=== PATIENT | female | born 1980 | race African-American/Black ===

== ENCOUNTER 2016-08-18 20:37 | Emergency (ER) | payer SELFPAY ==
[~2016-08-18] VITALS: Ht 160 cm; Wt 55.0 kg
[~2016-08-18 20:37] MED LIST: ALBU6.7H INH; PRED20 PO
[2016-08-18 20:40] VITALS: BP 117/58; PULSE 99; RESP 14; TEMP 98.2; O2SAT 98
[2016-08-18 21:14] LABS: BLOOD, URINE SMALL (NEG); COMMENT (UR) CULTURE INDICATED; CULTURE IF INDICATED CULTURE INDICATED; GLUCOSE,URINE NEG (NEG); KETONE, URINE NEG (NEG); MUCUS URINE FEW /lpf (OCC); NITRITE,URINE NEG (NEG); SQUAMOUS EPITHELIAL CELL URINE 14 /hpf (0-5); URINE COLOR YELLOW (YELLW/STRAW)
[2016-08-18] MEDS ORDERED: ALBU6.7H INH (21:23)
[2016-08-18] MEDS ORDERED: BACT800T5 PO (21:33)
[2016-08-18] MEDS ORDERED: PYRI200T4 PO (21:33)
--- NOTE | 2016-08-18 21:35 | PD ---
HPI Chief Complaint: Complaint Time Seen by Provider: 21:33 Travel History International Travel<30 days: No Contact w/Intl Traveler<30days: No Traveled to known affect area: No History of Present Illness HPI 36-year-old black female presents to emergency department with a one-week history of increased urinary frequency, dysuria and bladder pressure. She states that this is similar to what she's had bladder infections in the past. She denies any fever or chills. No back pain. No abdominal pain. No vaginal complaints. PFSH Past Medical History Narrative Medical UTIs Diminished Hearing: No Genitourinary: Yes (UTI LAST NOVEMBER. DID NOT FINISH MACROBID DUE TO NAUSEA) Tetanus Vaccination: < 5 Years ?: Not : 0 Para: 0 Miscarriage: 0 : 0 Past Surgical History Surgical History: No Previous Surgery Social History Alcohol Use: No Tobacco Use: No Substance Use: No Allergies-Medications (Allergen,Severity, Reaction): Coded Allergies: Seafood (Verified Allergy, Severe, Anaphylaxis, 08/18/16) Macrobid (Verified Adverse Reaction, Severe, NAUSEA/VOMITING, ABD PAIN, ) Reported Meds & Prescriptions Reported Meds & Active Scripts Active Reported Proventil Hfa 6.7 GM Inh (Albuterol Sulfate) 90 Mcg/Act Aer 2 Puff INH Q4-6H PRN Review of Systems Except as stated in HPI: all other systems reviewed are Neg Physical Exam Narrative GENERAL: Well-developed, well-nourished in no acute distress. Nontoxic appearing. HEAD: Normocephalic, atraumatic. EYES: Pupils equal round and reactive. Extraocular motions intact. No scleral icterus. No injection or drainage. ENT: TMs clear without erythema. The external auditory canals clear. Nose: clear . Posterior pharynx is pink and moist. No tonsillar edema or exudate. Uvula midline. Airway patent. NECK: Trachea midline.Supple, nontender, moves head freely. No central bony tenderness or spasm. CARDIOVASCULAR: Regular rate and rhythm without murmurs, gallops, or rubs. RESPIRATORY: Clear to auscultation. Breath sounds equal bilaterally. No wheezes , rales, or rhonchi. GASTROINTESTINAL: Abdomen soft, non-tender, nondistended. No hepato-splenomegaly , or palpable masses. No guarding. EXTREMITIES: No clubbing, cyanosis, or edema. No joint tenderness, effusion, or edema noted. BACK: Nontender without deformity or crepitance. No flank tenderness. Data Data Last Documented VS Vital Signs Date Time Temp Pulse Resp B/P Pulse Ox O2 Delivery O2 Flow Rate FiO2 08/18/16 20:40 98.2 99 14 117/58 98 Room Air Orders Urinalysis - C+S If Indicated (08/18/16 20:45) Urine Culture (08/18/16 20:45) Sulfamet-Trimeth Ds 800-160 Mg (Bactrim (08/18/16 21:45) Phenazopyridine (Pyridium) (08/18/16 21:45) Labs Laboratory Tests Test 08/18/16 20:45 Urine Color YELLOW Urine Turbidity CLOUDY Urine pH 6.0 Urine Specific [place] 1.022 Urine Protein 100 mg/dL Urine Glucose (UA) NEG mg/dL Urine Ketones NEG mg/dL Urine Occult Blood SMALL Urine Nitrite NEG Urine Bilirubin NEG Urine Urobilinogen LESS THAN 2.0 MG/DL Urine Leukocyte Esterase LARGE Urine RBC 30 /hpf Urine WBC /hpf Urine Squamous Epithelial 14 /hpf Cells Urine Mucus FEW /lpf Microscopic Urinalysis Comment CULTURE INDICATED MDM Medical Decision Making Medical Screen Exam Complete: Yes Emergency Medical Condition: Yes Medical Record Reviewed: Yes Interpretation(s) Laboratory Tests Test 08/18/16 20:45 Urine Color YELLOW Urine Turbidity CLOUDY Urine pH 6.0 Urine Specific [place] 1.022 Urine Protein 100 mg/dL Urine Glucose (UA) NEG mg/dL Urine Ketones NEG mg/dL Urine Occult Blood SMALL Urine Nitrite NEG Urine Bilirubin NEG Urine Urobilinogen LESS THAN 2.0 MG/DL Urine Leukocyte Esterase LARGE Urine RBC 30 /hpf Urine WBC /hpf Urine Squamous Epithelial 14 /hpf Cells Urine Mucus FEW /lpf Microscopic Urinalysis Comment CULTURE INDICATED Differential Diagnosis Differential diagnoses: UTI, pyelonephritis, vaginitis Narrative Course This is UTI. Patient's given Bactrim DS and Pyridium 200 mg by mouth. Diagnosis Primary Impression: UTI (urinary tract infection) Qualified Code: N30.01 - Acute cystitis with hematuria Patient Instructions: General Instructions Additional Instructions: Rest. Increase fluids. Septra DS and Pyridium. Follow-up with a primary care doctor in one week. Return to the ER for any problems. Med/Other Pt SpecificInfo: Prescription(s) given Scripts Phenazopyridine (Pyridium)200 Mg Jam407 Mg PO Q8H PRN (DYSURIA) #9 TAB Prov:Iván Toro MD 08/18/16 Sulfamethoxazole-Trimethoprim (Bactrim DS)800-160 Mg Tab1 Tab PO BID #14 TAB Prov:Iván Toro MD 08/18/16 Disposition: 01 DISCHARGE HOME Condition: Stable Thomas Vergara Aug 18, 2016 21:35
[2016-08-18] MEDS ORDERED: SULFAMETHOXAZOLE-TRIMETHOPRIM DS 800-160 MG TAB PO ONE (21:45)
[2016-08-18] MEDS ORDERED: PHENAZOPYRIDINE HCL 200 MG TAB PO ONE (21:45)
== END 2016-08-18 22:00 | disposition home or self-care (01) ==
LOC: NEPB 20:37
DX: N30.01 Acute cystitis with hematuria (principal); B96.20 Unspecified Escherichia coli [E. coli] as the cause of diseases classified elsewhere
CPT/HCPCS: 81001; 87077; 87086; 87186; 99283

== ENCOUNTER → 2017-06-15 | Outpatient (CLI) | payer MEDICAID ==
[~2017-06-15] MED LIST changes: +BACT800T5 PO; -PRED20 PO; +PYRI200T4 PO
== END ==
LOC: HPND 08:00
PROVIDERS: ATTEND Obstetrics & Gynecology
DX: O28.0 Abnormal hematological finding on antenatal screening of mother (principal); O40.2XX0 Polyhydramnios, second trimester, not applicable or unspecified; O35.8XX0 Maternal care for other (suspected) fetal abnormality and damage, not applicable or unspecified; O09.512 Supervision of elderly primigravida, second trimester
CPT/HCPCS: 76816

== ENCOUNTER → 2017-07-14 | Outpatient (CLI) | payer MEDICAID | LOC: HPND 08:03 | PROVIDERS: ATTEND Obstetrics & Gynecology | DX: O35.1XX0 Maternal care for (suspected) chromosomal abnormality in fetus, not applicable or unspecified (principal); O40.2XX0 Polyhydramnios, second trimester, not applicable or unspecified | CPT/HCPCS: 76816 ==

== ENCOUNTER 2017-07-21 08:20 | Emergency (ER) | payer MEDICAID ==
[2017-07-21] VITALS (33 sets, daily range): BP systolic 99–118; BP diastolic 56–71; PULSE 91–118; RESP 14–17; TEMP 98.2; O2SAT 99
[~2017-07-21] VITALS: Ht 157.5 cm; Wt 71.0 kg
--- NOTE | 2017-07-21 09:32 | PD ---
Physical Exam Time Seen by Provider: 09:24 Narrative 37-year-old female, approximately 29 weeks , presents to the emergency Department with complaint of dizziness that onset yesterday with worsening of today feeling that she was going to faint. She was at work and felt like she got overheated. Reports lower abdominal pressure. Reports nausea without vomiting. Denies fever or recent illness. Denies vaginal leaking, bleeding, vaginal discharge. Denies chest pain. Reports shortness of breath worse with activity. Reports normal movements. Blood sugar prior to arrival 291. Allergies to Macrobid. Denies significant past medical history. 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 No primary care provider. Data Data Last Documented VS Vital Signs Date Time Temp Pulse Resp B/P (MAP) Pulse Ox O2 Delivery O2 Flow Rate FiO2 07/21/17 08:22 98.2 106 14 118/71 (87) 99 MDM Supervised Visit with TESSY: No Narrative Course 0920: Dr. Ibarra spoke with [facility] charge nurse and the patient will the transferred to [facility] for further treatment and evaluation. See [facility] providers note for final patient disposition. Lilly Ashton Jul 21, 2017 09:32
[2017-07-21] MEDS ORDERED: LACTATED RINGER'S 1000 ML INJ 1,000 ML IV SCH (10:30)
--- NOTE | 2017-07-21 10:34 | PD ---
HPI Chief Complaint Weakness and dizziness pelvic pressure Date Seen: Jul 21, 2017 Time Seen: 10:30 Travel History International Travel<30 Days: No Contact w/Intl Traveler<30Days: No Known Affected Area: No History of Present Illness HPI Vision is 37-year-old black female at 30-[address] Toledo for care. She presents complaining of increasing weakness and dizziness today she didn't feel like herself but she says she has some pelvic pressure discomfort. Denies leakage of fluid or bleeding. heart tones are reactive she is having some contractions noted on the monitor initially Weeks Gestation: 30 Para: 0 : 3 History Obstetric History Obstetric History 2 early losses Social History Alcohol Use: No Tobacco Use: No Substance Abuse: No Allergies-Medications (Allergen,Severity, Reaction): Coded Allergies: Fish Containing Products (Unverified Allergy, Severe, Anaphylaxis, 02/08/17 ) nitrofurantoin (Unverified Adverse Reaction, Severe, NAUSEA/VOMITING, ABD PAIN, 02/08/17) Home Meds Active Scripts Phenazopyridine (Pyridium) 200 Mg Tab, 200 MG PO Q8H Y for DYSURIA, #9 TAB Prov:Iván Toro MD 08/18/16 Sulfamethoxazole-Trimethoprim (Bactrim DS) 800-160 Mg Tab, 1 TAB PO BID for Infection, #14 TAB Prov:Iván Toro MD 08/18/16 Reported Medications Albuterol 6.7 GM Inh (Proventil Hfa 6.7 GM Inh) 90 Mcg/Act Aer, 2 PUFF INH Q4- 6H Y for SHORTNESS OF BREATH, #1 INHALER 0 Refills 08/18/16 Review of Systems General / Constitutional: No: Fever, Weight Gain, Chills, Other Eyes: No: Diploplia, Blurred Vision, Visual changes, Pain, Photophobia HENT: No: Headaches, Vertigo, Lightheadedness Cardiovascular: No: Irregular Rhythm, Chest Pain or Discomfort, Palpitations, Tachycardia, Syncope, Varicosities, Edema, Cyanosis Respiratory: No: Cough, Short of Breath, Other Gastrointestinal: No: Nausea, Vomiting, Diarrhea Genitourinary: No: Decreased Urinary Output, Oliguria Musculoskeletal: No: Limited ROM, Weakness, Cramping, Edema, Pain Skin: No Rash, No Itching, No Dryness, No Lumps, No Change in Pigmentation, No Change in Nails, No Alopecia, No Lesions Neurologic: Weakness, Dizziness, No: Syncope, Focal Abnormalities, Coordination Problem, Headache, Slurred Speech, Seizures Psychiatric: No: Depression, Suicidal Ideations, Homicidal Ideation Endocrine: No: Heat Intolerance, Cold Intolerance, Polydipsia, Polyuria, Other Physical Exam Vital Signs Date Time Temp Pulse Resp B/P (MAP) Pulse Ox O2 Delivery O2 Flow Rate FiO2 07/21/17 09:26 100 16 99/56 (70) 99 Room Air 07/21/17 09:15 97 16 107/60 (76) 99 07/21/17 08:22 98.2 106 14 118/71 (87) 99 Narrative GENERAL: Well-nourished, well-developed patient. SKIN: Warm and dry. HEAD: Normocephalic and atraumatic. EYES: No scleral icterus. No injection or drainage. ENT: No nasal drainage noted. Mucous membranes pink. Airway patent. NECK: Supple, trachea midline. No JVD. CARDIOVASCULAR: Regular rate and rhythm without murmurs, gallops, or rubs. RESPIRATORY: Breath sounds equal bilaterally. No accessory muscle use. BREASTS: Bilateral exam showed no masses , no retractions, no nipple discharge. ABDOMEN/GI: Abdomen soft, non-tender, bowel sounds present, no rebound, no guarding Gravid to [-30] weeks size Fundal Height: [30-] GENITOURINARY: External Genitalia: intact and normal in appearance BUS glands: [-] Cervix: [post-] Dilatation: [0-] Effacement: [-thick] Station: [-3] Membranes: [intact ] Uterine Contractions: [q 3 min-] FHT's: Category: [-1] Baseline: [133-] Reactive: [-R] Variability: [-mod] Decels: [-none] EXTREMITIES: No cyanosis or edema. BACK: Nontender without obvious deformity. No CVA tenderness. NEUROLOGICAL: Awake and alert. Motor and sensory grossly within normal limits. Five out of 5 muscle strength in all muscle groups. Normal speech. Data Data Orders Orders Ed Discharge Order (07/21/17 09:33) Vital Signs (Adult) .ON ADMISSION (07/21/17 10:30) ^ Labor Status (07/21/17 10:30) Urinalysis - C+S If Indicated (07/21/17 10:30) ^ Non Stress Test (07/21/17 10:30) ^ Hydration (07/21/17 10:30) Cbc No Diff, Includes Plts (07/21/17 10:30) Comprehensive Metabolic Panel (07/21/17 10:30) Lactated Ringer's 1000 Ml Inj (Lr 1000 M (07/21/17 10:30) Ob/Psych Drug Screen, Urine (07/21/17 10:30) MDM Interpretation(s) Patient 37-year-old black female at 30-[address] Toledo for care presents here with feeling dizzy week pelvic pressure. She is a heart rate tracings are reactive she is tata at this time. She has no bleeding or leakage of fluid. Cervix is closed long and thick,. urinalysis negative Plan Plan this patient is to hydrate and sedate medicate to stop contractions noted, lab within normal limits. Serzone to bedrest, Tylenol, increase by mouth fluids, and see her OB provider Diagnosis Diagnosis: Primary Impression: Premature uterine contractions in third trimester, antepartum Additional Impression: Dizziness Disposition: 01 DISCHARGE HOME Condition: Stable Eliud Storey II, MD Jul 21, 2017 10:34
[2017-07-21] MEDS ORDERED: TERBUTALINE INJ 1 MG/ML AMP SQ PRN (11:00)
[2017-07-21 11:22] LABS: HEMATOCRIT 34.5 % (35.0-46.0); HEMOGLOBIN 11.9 GM/DL (11.6-15.3); MEAN CELL VOLUME 89.5 FL (80.0-100.0); MEAN CORPUSCULAR HEMOGLOBIN 30.9 PG (27.0-34.0); MEAN CORPUSCULAR HGB CONC 34.5 % (32.0-36.0); MEAN PLATELET VOLUME 9.6 FL (7.0-11.0); PLATELET COUNT 205 TH/MM3 (150-450); RED BLOOD COUNT 3.86 MIL/MM3 (4.00-5.30); RED CELL DISTRIBUTION WIDTH 13.8 % (11.6-17.2); WHITE BLOOD COUNT 11.3 TH/MM3 (4.0-11.0)
[2017-07-21 11:23] LABS: BILIRUBIN, URINE NEG (NEG); BLOOD, URINE NEG (NEG); GLUCOSE,URINE 300 mg/dL (NEG); KETONE, URINE NEG (NEG); NITRITE,URINE NEG (NEG); PH, URINE 6.5 (5.0-8.5); SQUAMOUS EPITHELIAL CELL URINE <1 /hpf (0-5); URINE COLOR YELLOW (YELLW/STRAW); URINE LEUKOCYTE ESTERASE NEG (NEG)
[2017-07-21 11:28] LABS: ALBUMIN 2.7 GM/DL (3.4-5.0); ALT (GPT) 17 U/L (10-53); AST (GOT) 13 U/L (15-37); BICARBONATE 24.5 MEQ/L (21.0-32.0); BLOOD UREA NITROGEN 6 MG/DL (7-18); CALCIUM 8.3 MG/DL (8.5-10.1); CHLORIDE 104 MEQ/L (98-107); CREATININE 0.71 MG/DL (0.50-1.00); GLOMERULAR FILTRATION RATE 113 ML/MIN (>89); GLUCOSE,RANDOM 144 MG/DL (74-106); SODIUM (NA) 136 MEQ/L (136-145)
[2017-07-21 11:31] LABS: ALKALINE PHOSPHATASE 146 U/L (45-117); TOTAL BILIRUBIN ADULT 0.3 MG/DL (0.2-1.0); TOTAL PROTEIN 7.2 GM/DL (6.4-8.2)
== END 2017-07-21 13:21 | disposition home or self-care (01) ==
LOC: HOBED 08:20
DX: O26.893 Other specified pregnancy related conditions, third trimester (principal); R10.2 Pelvic and perineal pain; Z3A.30 30 weeks gestation of pregnancy
CPT/HCPCS: 80053; 80307; 81001; 85027; 96372; 96374; 99284; G0481; J3010; J3105; J7120

== ENCOUNTER → 2017-08-16 | Outpatient (CLI) | payer MEDICAID | LOC: HPND 08:10 | PROVIDERS: ATTEND Obstetrics & Gynecology | DX: O40.3XX0 Polyhydramnios, third trimester, not applicable or unspecified (principal); O09.523 Supervision of elderly multigravida, third trimester; O28.0 Abnormal hematological finding on antenatal screening of mother | CPT/HCPCS: 76816 ==